=== PATIENT | male | born 1955 | race Caucasian/White ===

== ENCOUNTER 2018-08-23 07:28 | Day surgery (SDC) | payer OTHER ==
[2018-08-23] MEDS: NS 1,000 ML IV (07:49)
[2018-08-23] MEDS ORDERED: LIDOCAINE 2% INJ 100 MG/5 ML SDV (FOR ANES.) As Ordered (08:03)
[2018-08-23] MEDS ORDERED: PROPOFOL 200 MG/20 ML VIAL As Ordered ×2 (08:03→08:40)
== END 2018-08-23 09:25 | disposition home or self-care (01) ==
LOC: M OPP 07:28
DX: Z12.11 Encounter for screening for malignant neoplasm of colon (principal); Z86.010 Personal history of colon polyps; K57.30 Diverticulosis of large intestine without perforation or abscess without bleeding; D12.5 Benign neoplasm of sigmoid colon; I10 Essential (primary) hypertension; Z87.891 Personal history of nicotine dependence; Z79.899 Other long term (current) drug therapy; Z98.890 Other specified postprocedural states; Z80.3 Family history of malignant neoplasm of breast
CPT/HCPCS: 45385

== ENCOUNTER → 2019-11-10 | Outpatient (REF) | payer OTHER ==
[~2019-11-10] MED LIST: LISI20TA19 PO
== END ==
LOC: M LAB REF 19:20
PROVIDERS: ATTEND Podiatrist Foot & Ankle Surgery
DX: L72.0 Epidermal cyst (principal)

== ENCOUNTER 2024-01-30 11:38 | Day surgery (SDC) | payer MEDICARE, OTHER ==
[~2024-01-30] VITALS: Ht 177.8 cm; Wt 121.6 kg
[~2024-01-30 11:38] MED LIST changes: -LISI20TA19 PO; +LISI20TA35 PO; +NS 1,000 ML IV ONE
[2024-01-30] MEDS: NS 1,000 ML IV ONE (12:05)
[2024-01-30] MEDS ORDERED: propofoL 200 MG/20 ML VIAL As Ordered ONE (13:54)
[2024-01-30] MEDS ORDERED: LIDOCAINE 2% 100MG/5ML SDV (FOR ANES.) As Ordered ONE (13:54)
[2024-01-30 14:27] VITALS: TEMP 96.9
[2024-01-30 14:42] VITALS: BP 128/67; O2SAT 95
== END 2024-01-30 14:49 | disposition home or self-care (01) ==
LOC: M OPP 11:38
PROVIDERS: ATTEND Internal Medicine Gastroenterology
DX: Z12.11 Encounter for screening for malignant neoplasm of colon (principal); Z86.010 Personal history of colon polyps; D12.5 Benign neoplasm of sigmoid colon; K64.8 Other hemorrhoids; K57.30 Diverticulosis of large intestine without perforation or abscess without bleeding; Z87.891 Personal history of nicotine dependence; Z79.899 Other long term (current) drug therapy